=== PATIENT | male | born 1980 | race Caucasian/White ===

== ENCOUNTER 2018-01-19 06:36 | Emergency (ER) | payer SELFPAY ==
--- NOTE | 2018-01-19 07:25 | ER ---
Nurse's Notes [facility] Name: Tomas Jordan Age: 37 yrs Sex: Male : 1980 Arrival Date: 01/19/2018 Time: 06:47 Bed 18 Private MD: Diagnosis: L5 Sciatica right. Presentation: 01/19 07:07 Presenting complaint: Patient states: has right hip pain radiating down right leg, also iw has numbness in leg. Transition of care: patient was not received from another setting of care. Onset of symptoms was January 19, 2018. Care prior to arrival: None. 07:07 Method Of Arrival: Ambulatory iw 07:07 Acuity: DAREK 4 iw 07:22 Initial Sepsis Screen: Does the patient meet any 2 criteria? No. Patient's initial ph sepsis screen is negative. Does the patient have a suspected source of infection? No. Patient initial sepsis screen negative. Triage Assessment: 07:19 General: Appears in no apparent distress. uncomfortable, Behavior is calm, cooperative, ph appropriate for age, Denies fever, feeling ill. Pain: Complains of pain in low back area Pain radiates to right leg Pain currently is 8 out of 10 on a pain scale. Quality of pain is described as sharp, shooting. Neuro: Level of Consciousness is awake, alert, obeys commands, Oriented to person, place, time, situation. Cardiovascular: Capillary refill < 3 seconds Patient's skin is warm and dry. Respiratory: Airway is patent Respiratory effort is even, unlabored, Respiratory pattern is regular, symmetrical. GI:. Derm: Skin is intact, is healthy with good turgor, Skin is pink, warm \T\ dry. Musculoskeletal: Circulation, motion, and sensation intact. Range of motion: intact in all extremities, Swelling absent. Historical: - Allergies: 07:17 tramadol; ph - Home Meds: 07:19 None [Active]; ph - PMHx: 07:19 Gout; ph - PSHx: 07:19 hydrocele; ph - Immunization history:: Adult Immunizations not up to date. - Social history:: Smoking status: Patient uses tobacco products, smokes one pack cigarettes per day. Screenin:19 Abuse screen: Denies threats or abuse. Denies injuries from another. Nutritional ph screening: No deficits noted. Tuberculosis screening: No symptoms or risk factors identified. Fall Risk None identified. Assessment: 07:30 General: SEE TRIAGE ASSESSMENT. ph 08:15 Reassessment: Patient appears in no apparent distress at this time. Patient is alert, ph oriented x 3, equal unlabored respirations, skin warm/dry/pink. Pt discharged home. Vital Signs: 07:17 BP 152 / 94; Pulse 82; Resp 18; Temp 97.8; Pulse Ox 99% on R/A; Weight 98.88 kg; Pain ph 8/10; ED Course: 06:47 Patient arrived in ED. al2 07:02 Mac Bernal MD is Attending Physician. ps1 07:07 Triage completed. iw 07:15 Magy Rowe RN is Primary Nurse. ph 07:19 Arm band placed on. ph 07:21 Patient has correct armband on for positive identification. Bed in low position. Call ph light in reach. 07:22 No provider procedures requiring assistance completed. Patient did not have IV access ph during this emergency room visit. Administered Medications: 07:50 Drug: TORadol 30 mg Route: IM; Site: right deltoid; ph 08:14 Follow up: Response: No adverse reaction ph 07:50 Drug: Decadron - Dexamethasone 10 mg {Note: administered orally per ERP order.} Route: ph IVP; Site: Other; 08:14 Follow up: Response: No adverse reaction ph Outcome: 07:24 Discharge ordered by . ps1 08:15 Discharged to home ambulatory. ph 08:15 Condition: good 08:15 Discharge instructions given to patient, Instructed on discharge instructions, follow up and referral plans. medication usage, Demonstrated understanding of instructions, follow-up care, medications, Prescriptions given X 3. 08:15 Patient left the ED. ph Signatures: Rena Quach, RN RN iw Magy Rowe, RN RN ph Mac Bernal MD MD ps1 Love, Angelica al2
--- NOTE | 2018-01-19 07:25 | EDPHYS ---
Physician Documentation [facility] Name: Tomas Jordan Age: 37 yrs Sex: Male : 1980 Arrival Date: 01/19/2018 Time: 06:47 Bed 18 Private MD: ED Physician Mac Bernal HPI: 01/19 07:18 This 37 yrs old Male presents to ER via Ambulatory with complaints of Back ps1 Pain. 07:18 The patient presents with pain that is acute, with no known mechanism of injury. The ps1 symptoms are located in the low back. Onset: The symptoms/episode began/occurred yesterday. Location: right leg to toe. Associated signs and symptoms: Pertinent positives: tingling, Pertinent negatives: fever, urinary retention, weakness. 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 Historical: - Allergies: 07:17 tramadol; ph - Home Meds: 07:19 None [Active]; ph - PMHx: 07:19 Gout; ph - PSHx: 07:19 hydrocele; ph - Immunization history:: Adult Immunizations not up to date. - Social history:: Smoking status: Patient uses tobacco products, smokes one pack cigarettes per day. ROS: 07:18 Constitutional: Negative for fever, chills, and weight loss, Cardiovascular: Negative ps1 for chest pain, palpitations, and edema, Respiratory: Negative for shortness of breath, cough, wheezing, and pleuritic chest pain, Abdomen/GI: Negative for abdominal pain, nausea, vomiting, diarrhea, and constipation. 07:18 Skin: Negative for injury, rash, and discoloration, Neuro: Negative for headache, weakness, numbness, tingling, and seizure, Psych: Negative for depression, anxiety, suicide ideation, homicidal ideation, and hallucinations. 07:18 Back: Positive for pain at rest, radiated pain, Negative for injury or acute deformity. Exam: 07:18 Constitutional: This is a well developed, well nourished patient who is awake, alert, ps1 and in no acute distress. Head/Face: Normocephalic, atraumatic. Eyes: Pupils equal round and reactive to light, extra-ocular motions intact. Lids and lashes normal. Conjunctiva and sclera are non-icteric and not injected. Chest/axilla: Normal chest wall appearance and motion. Nontender with no deformity. No lesions are appreciated. Cardiovascular: Regular rate and rhythm. No gallops, murmurs, or rubs. Normal PMI, no JVD. No pulse deficits. Respiratory: Lungs have equal breath sounds bilaterally, clear to auscultation and percussion. No rales, rhonchi or wheezes noted. No increased work of breathing, no retractions or nasal flaring. Abdomen/GI: Soft, non-tender, with normal bowel sounds. No distension or tympany. No guarding or rebound. No evidence of tenderness throughout. Skin: Warm, dry with normal turgor. Normal color with no rashes, no lesions, and no evidence of cellulitis. Neuro: Awake and alert, GCS 15, oriented to person, place, time, and situation. Cranial nerves II-XII grossly intact. Sensory grossly intact. 07:18 MS/ Extremity: Pulses equal, no cyanosis. Neurovascular intact. Full, normal range of motion. 07:18 Back: pain, that is moderate, ROM is painful, muscle spasm, is appreciated in the right low back. Vital Signs: 07:17 BP 152 / 94; Pulse 82; Resp 18; Temp 97.8; Pulse Ox 99% on R/A; Weight 98.88 kg; Pain ph 8/10; MDM: 07:18 Data reviewed: vital signs, nurses notes. ps1 07:24 Patient medically screened. ps1 Administered Medications: 07:50 Drug: TORadol 30 mg Route: IM; Site: right deltoid; ph 08:14 Follow up: Response: No adverse reaction ph 07:50 Drug: Decadron - Dexamethasone 10 mg {Note: administered orally per ERP order.} Route: ph IVP; Site: Other; 08:14 Follow up: Response: No adverse reaction ph Disposition: 18 07:24 Discharged to Home. Impression: L5 Sciatica right. . - Condition is Stable. - Discharge Instructions: Sciatica. - Prescriptions for Anaprox DS 550 mg Oral Tablet - take 1 tablet by ORAL route every 12 hours As needed; 20 tablet. Robaxin 500 mg Oral Tablet - take 2 tablet by ORAL route every 6 hours As needed; 40 tablet. Medrol (Ivan) 4 mg Oral Tablets, Dose Pack - take 1 tablet by ORAL route as directed - follow package instructions; 1 packet. - Work release form, Medication Reconciliation Form, Thank You Letter, Antibiotic Education, Prescription Opioid Use form. - Follow up: Emergency Department; When: As needed; Reason: Fever > 102 F, Worsening of condition. Follow up: Private Physician; When: As needed; Reason: follow up and consideration of further diagnostic workup. . - Problem is new. - Symptoms are unchanged. Signatures: Magy Rowe RN RN Mac Kramer MD MD ps1
[2018-01-19] MEDS ORDERED: DEXAMETHASONE 10 MG/ML VIAL ONE (07:42)
[2018-01-19] MEDS ORDERED: KETOROLAC 30 MG/ML INJ ONE (07:42)
== END 2018-01-19 08:15 | disposition home or self-care (01) ==
LOC: ER 06:36
DX: M54.31 Sciatica, right side (principal); F17.210 Nicotine dependence, cigarettes, uncomplicated; Z88.6 Allergy status to analgesic agent
CPT/HCPCS: 96372; 96374; 99283; J1100

== ENCOUNTER 2018-01-22 19:32 | Emergency (ER) | payer SELFPAY ==
--- NOTE | 2018-01-22 21:36 | EDPHYS ---
Physician Documentation [facility] Name: Tomas Jordan Age: 37 yrs Sex: Male : 1980 Arrival Date: 01/22/2018 Time: 19:36 Bed 12 Private MD: ED Physician Ed Hilliard HPI: 01/22 22:00 This 37 yrs old Male presents to ER via Ambulatory with complaints of Skin pm1 infection. 22:00 The patient presents with an abscess of the shaft of penis. Description: raised. Onset: pm1 The symptoms/episode began/occurred 1 month(s) ago. Possible cause(s): unknown. Associated signs and symptoms: Pertinent negatives: discharge, drainage, fever. Modifying factors: the symptoms are alleviated by nothing, the symptoms are aggravated by nothing. Severity of symptoms: in the emergency department the symptoms have improved. The patient has not experienced similar symptoms in the past. The patient has not recently seen a physician. No intercourse for 1 year. No history of STD. History of MRSA infection to left arm 3 years ago. Historical: - Allergies: 20:11 tramadol; aj - Home Meds: 20:11 None [Active]; aj - PMHx: 20:11 Gout; aj - PSHx: 20:11 hydrocele; aj - Immunization history:: Last tetanus immunization: up to date. - Social history:: Smoking status: Patient uses tobacco products, smokes one pack cigarettes per day. ROS: 22:00 Constitutional: Negative for fever, chills, and weight loss, Eyes: Negative for injury, pm1 pain, redness, and discharge, ENT: Negative for injury, pain, and discharge, Neck: Negative for injury, pain, and swelling, Cardiovascular: Negative for chest pain, palpitations, and edema, Respiratory: Negative for shortness of breath, cough, wheezing, and pleuritic chest pain, Abdomen/GI: Negative for abdominal pain, nausea, vomiting, diarrhea, and constipation, Back: Negative for injury and pain, : Negative for injury, bleeding, discharge, and swelling, MS/Extremity: Negative for injury and deformity. 22:00 Skin: Positive for abscess, of the shaft of penis. Exam: 22:00 Constitutional: This is a well developed, well nourished patient who is awake, alert, pm1 and in no acute distress. Head/Face: Normocephalic, atraumatic. Chest/axilla: Normal chest wall appearance and motion. Nontender with no deformity. No lesions are appreciated. Cardiovascular: Regular rate and rhythm with a normal S1 and S2. No gallops, murmurs, or rubs. Normal PMI, no JVD. No pulse deficits. Respiratory: Lungs have equal breath sounds bilaterally, clear to auscultation and percussion. No rales, rhonchi or wheezes noted. No increased work of breathing, no retractions or nasal flaring. Abdomen/GI: Soft, non-tender, with normal bowel sounds. No distension or tympany. No guarding or rebound. No evidence of tenderness throughout. Back: No spinal tenderness. No costovertebral tenderness. Full range of motion. 22:00 Skin: Warm, dry with normal turgor. Normal color with no rashes, no lesions, and no evidence of cellulitis. MS/ Extremity: Pulses equal, no cyanosis. Neurovascular intact. Full, normal range of motion. 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 Vital Signs: 20:11 BP 154 / 89; Pulse 97; Resp 17; Temp 98.4; Pulse Ox 97% on R/A; Weight 98.88 kg; Height aj 5 ft. 11 in. (180.34 cm); Pain 0/10; 20:11 Body Mass Index 30.40 (98.88 kg, 180.34 cm) aj MDM: 20:46 Patient medically screened. [facility] 21:33 Data reviewed: vital signs. Data interpreted: Pulse oximetry: on room air is 97 %. pm1 Interpretation: normal. Counseling: I had a detailed discussion with the patient and/or guardian regarding: the historical points, exam findings, and any diagnostic results supporting the discharge/admit diagnosis, the need for outpatient follow up, to return to the emergency department if symptoms worsen or persist or if there are any questions or concerns that arise at home. Administered Medications: No medications were administered Disposition: 01/22/18 21:35 Discharged to Home. Impression: Cutaneous abscess of groin. - Condition is Stable. - Discharge Instructions: Abscess. - Prescriptions for Bactrim DS 800- 160 mg Oral Tablet - take 1 tablet by ORAL route every 12 hours for 10 days; 20 tablet. - Medication Reconciliation Form, Thank You Letter, Antibiotic Education form. - Follow up: Emergency Department; When: As needed; Reason: Worsening of condition. Follow up: Private Physician; When: 2 - 3 days; Reason: Recheck today's complaints, Continuance of care, Re-evaluation by your physician. - Problem is new. - Symptoms have improved. Addendum: 01/24/2018 07:25 Co-signature as Attending Physician, Ed Hilliard MD I agree with the assessment and c wilde plan of care. Signatures: Iman Bowman, RN Ed Cook MD MD cha Ortiz, Alex RN Nato Amaya, RESERVATION CLERK RESERVATION CLERK pm1
--- NOTE | 2018-01-22 21:36 | ER ---
Nurse's Notes [facility] Name: Tomas Jordan Age: 37 yrs Sex: Male : 1980 Arrival Date: 01/22/2018 Time: 19:36 Bed 12 Private MD: Diagnosis: Cutaneous abscess of groin Presentation: 01/22 20:10 Presenting complaint: Patient states: Ulcer to shaft of penis for 1 month. Transition aj of care: patient was not received from another setting of care. Onset of symptoms was December 22, 2017. Initial Sepsis Screen: Does the patient meet any 2 criteria? No. Patient's initial sepsis screen is negative. Does the patient have a suspected source of infection? No. Patient's initial sepsis screen is negative. Care prior to arrival: None. 20:10 Method Of Arrival: Ambulatory aj 20:10 Acuity: DAREK 4 aj Triage Assessment: 20:11 General: Appears in no apparent distress. comfortable, Behavior is calm, cooperative, aj appropriate for age. Pain: Denies pain. Neuro: Level of Consciousness is awake, alert, obeys commands, Oriented to person, place, time, situation. Respiratory: Airway is patent Respiratory effort is even, unlabored, Respiratory pattern is regular, symmetrical. : Reports sore to right shaft or penis. Derm: Skin is intact, is healthy with good turgor, Skin is pink, warm \T\ dry. normal. Historical: - Allergies: 20:11 tramadol; aj - Home Meds: 20:11 None [Active]; aj - PMHx: 20:11 Gout; aj - PSHx: 20:11 hydrocele; aj - Immunization history:: Last tetanus immunization: up to date. - Social history:: Smoking status: Patient uses tobacco products, smokes one pack cigarettes per day. Screenin:06 Abuse screen: Denies threats or abuse. Denies injuries from another. Nutritional ao screening: No deficits noted. Tuberculosis screening: No symptoms or risk factors identified. Fall Risk None identified. Assessment: 21:00 General: Appears in no apparent distress. comfortable, Behavior is calm, cooperative, ao appropriate for age. Pain: Complains of pain in pelvis. Neuro: Level of Consciousness is awake, alert, obeys commands, Oriented to person, place, time, situation, Appropriate for age Moves all extremities. Full function Speech is normal, Facial symmetry appears normal. Cardiovascular: Heart tones S1 S2 Capillary refill < 3 seconds Patient's skin is warm and dry. Respiratory: Airway is patent Respiratory effort is even, unlabored, Respiratory pattern is regular, symmetrical. GI: Abdomen is non-distended. : No signs and/or symptoms were reported regarding the genitourinary system. Boil in the shaft of the penes. EENT: No signs and/or symptoms were reported regarding the EENT system. Derm: Skin is intact, Skin temperature is warm. Musculoskeletal: Range of motion:. 22:06 Reassessment: DC given to patient. Patient understand the POC and to follow up with ao PCP. Patient understand to complete antibiotics. Vital Signs: 20:11 BP 154 / 89; Pulse 97; Resp 17; Temp 98.4; Pulse Ox 97% on R/A; Weight 98.88 kg; Height aj 5 ft. 11 in. (180.34 cm); Pain 0/10; 20:11 Body Mass Index 30.40 (98.88 kg, 180.34 cm) aj ED Course: 19:36 Patient arrived in ED. es 20:11 Triage completed. aj 20:11 Arm band placed on left wrist. Patient placed in waiting room, Patient notified of wait aj time. 20:30 Rena Quach, YE is Primary Nurse. iw 20:40 Nato Healy NP is PHCP. pm1 20:40 Ed Hilliard MD is Attending Physician. pm1 22:06 No provider procedures requiring assistance completed. Patient did not have IV access ao during this emergency room visit. 22:07 Patient has correct armband on for positive identification. ao Administered Medications: No medications were administered Outcome: 21:35 Discharge ordered by . pm1 22:07 Discharged to home ambulatory. ao 22:07 Condition: stable 22:07 Discharge instructions given to patient, Instructed on discharge instructions, follow up and referral plans. Demonstrated understanding of instructions, follow-up care, medications, wound care, Prescriptions given X 1. 22:07 Patient left the ED. ao Signatures: Iman Bowman RN Kate Beavers Rena Quach RN RN iw Ortiz, Alex, RN RN ao Marinas, Patrick, NP CHART PICKER pm1
== END 2018-01-22 22:07 | disposition home or self-care (01) ==
LOC: ER 19:32
DX: L02.214 Cutaneous abscess of groin (principal); Z88.6 Allergy status to analgesic agent
CPT/HCPCS: 99282

== ENCOUNTER 2018-02-15 18:35 | Emergency (ER) | payer SELFPAY ==
[2018-02-15] MEDS ORDERED: HYDROCODONE/APAP 10/325 TAB ONE (20:29)
[2018-02-15] MEDS ORDERED: KETOROLAC 30 MG/ML INJ ONE (20:30)
--- NOTE | 2018-02-15 20:59 | EDPHYS ---
Physician Documentation [facility] Name: Tomas Jordan Age: 38 yrs Sex: Male : 1980 Arrival Date: 02/15/2018 Time: 18:37 Bed 28 Private MD: ED Physician Luis Tejada HPI: 02/15 20:45 This 38 yrs old Male presents to ER via Ambulatory with complaints of Hand rn pain. 20:45 The patient or guardian reports pain. The complaints affect the MCP of left index rn finger. Onset: The symptoms/episode began/occurred at an unknown time. Severity of symptoms: At their worst the symptoms were mild, in the emergency department the symptoms are unchanged. The patient has experienced similar episodes in the past. Reports hx of gout since in 20s, is right handed, reports left hand pain, located in 2nd MTP, + mild swelling, no trauma, no fever, no IV drug use. Similar episodes in past, no finger proper pain. 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 Historical: - Allergies: 19:00 tramadol (Hives); hb - Home Meds: 19:00 None [Active]; hb - PMHx: 19:00 Gout; hb - PSHx: 19:00 hydrocele; hb - Immunization history:: Adult Immunizations up to date. - Social history:: Smoking status: Patient uses tobacco products, smokes one pack cigarettes per day. - Family history:: not pertinent. - Hospitalizations: : No recent hospitalization is reported. ROS: 20:45 Constitutional: Negative for fever, chills, and weight loss, MS/Extremity: Negative for rn injury and deformity. Exam: 20:45 Constitutional: This is a well developed, well nourished patient who is awake, alert, rn and in no acute distress. MS/ Extremity: Pulses equal, no cyanosis. Neurovascular intact. Full, normal range of motion. Equal circumference. + left 2nd MTP joint with mild swelling, + FROM, no deformity, no skin changes. Vital Signs: 18:59 BP 126 / 73; Pulse 101; Resp 16; Temp 98.6; Pulse Ox 97% on R/A; Weight 98.43 kg; hb Height 5 ft. 11 in. (180.34 cm); Pain 5/10; 21:09 BP 130 / 72; Pulse 93; Resp 16; Pulse Ox 98% on R/A; aj 18:59 Body Mass Index 30.27 (98.43 kg, 180.34 cm) MDM: 20:14 Patient medically screened. rn 20:57 Differential diagnosis: gout, arthritis. Data reviewed: vital signs, nurses notes, and rn as a result, I will discharge patient. Counseling: I had a detailed discussion with the patient and/or guardian regarding: the historical points, exam findings, and any diagnostic results supporting the discharge/admit diagnosis, the need for outpatient follow up, to return to the emergency department if symptoms worsen or persist or if there are any questions or concerns that arise at home. Response to treatment: the patient's symptoms have mildly improved after treatment, and as a result, I will discharge patient. Special discussion: I discussed with the patient/guardian in detail that at this point there is no indication for admission to the hospital. It is understood, however, that if the symptoms persist or worsen the patient needs to return immediately for re-evaluation. Administered Medications: 20:33 Drug: TORadol 30 mg Route: IM; Site: left gluteus; aj 21:10 Follow up: Response: Pain is decreased aj 20:33 Drug: [place] 10 mg-325 mg 1 tabs Route: PO; aj 21:10 Follow up: Response: Pain is decreased Disposition: 02/15/18 20:57 Discharged to Home. Impression: Gout. - Condition is Stable. - Discharge Instructions: Gout. - Prescriptions for Tylenol- Codeine #3 300-30 mg Oral Tablet - take 1 tablet by ORAL route every 6 hours As needed; 15 tablet. Diclofenac Sodium 75 mg Oral Tablet Sustained Release - take 1 tablet by ORAL route 2 times per day; 30 tablet. - Medication Reconciliation Form, Thank You Letter, Antibiotic Education, Prescription Opioid Use form. - Follow up: Private Physician; When: As needed; Reason: Recheck today's complaints, Re-evaluation by your physician. - Problem is an acute exacerbation. - Symptoms have improved. Signatures: Iman Bowman RN RN aj Nieto, Roman, MD MD rn Baxter, Heather, RN RN Corrections: (The following items were deleted from the chart) 20:47 20:45 Reports hx of gout since in 20s, is right handed, reports left hand pain, located rn in 1st MTP, + mild swelling, no trauma, no fever, no IV drug use. Similar episodes in past, no finger proper pain. 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 rn 21:11 20:57 02/15/2018 20:57 Discharged to Home. Impression: Gout. Condition is Stable. Forms aj are Medication Reconciliation Form, Thank You Letter, Antibiotic Education, Prescription Opioid Use. Follow up: Private Physician; When: As needed; Reason: Recheck today's complaints, Re-evaluation by your physician. Problem is an acute exacerbation. Symptoms have improved. rn
--- NOTE | 2018-02-15 20:59 | ER ---
Nurse's Notes [facility] Name: Tomas Jordan Age: 38 yrs Sex: Male : 1980 Arrival Date: 02/15/2018 Time: 18:37 Bed 28 Private MD: Diagnosis: Gout Presentation: 02/15 18:59 Presenting complaint: Patient states: Left index finger pain and swelling since this hb morning. Hx gout. Transition of care: patient was not received from another setting of care. Onset of symptoms was February 15, 2018. Initial Sepsis Screen: Does the patient meet any 2 criteria? No. Patient's initial sepsis screen is negative. Does the patient have a suspected source of infection? No. Patient's initial sepsis screen is negative. Care prior to arrival: None. 18:59 Method Of Arrival: Ambulatory hb 18:59 Acuity: DAREK 4 hb Historical: - Allergies: 19:00 tramadol (Hives); hb - Home Meds: 19:00 None [Active]; hb - PMHx: 19:00 Gout; hb - PSHx: 19:00 hydrocele; hb - Immunization history:: Adult Immunizations up to date. - Social history:: Smoking status: Patient uses tobacco products, smokes one pack cigarettes per day. - Family history:: not pertinent. - Hospitalizations: : No recent hospitalization is reported. Screenin:55 Abuse screen: Denies threats or abuse. Denies injuries from another. Nutritional aj screening: No deficits noted. Tuberculosis screening: No symptoms or risk factors identified. Fall Risk None identified. Assessment: 19:51 General: Appears in no apparent distress. comfortable, Behavior is calm, cooperative, aj appropriate for age. Pain: Complains of pain in left hand. Neuro: Level of Consciousness is awake, alert, obeys commands, Oriented to person, place, time, situation, Appropriate for age. Respiratory: Airway is patent Trachea midline Respiratory effort is even, unlabored, Respiratory pattern is regular, symmetrical. Derm: Skin is intact, is healthy with good turgor, Skin is pink, warm \T\ dry. normal. Musculoskeletal: Circulation, motion, and sensation intact. Swelling present in dorsal aspect of proximal phalanx of left index finger. Vital Signs: 18:59 BP 126 / 73; Pulse 101; Resp 16; Temp 98.6; Pulse Ox 97% on R/A; Weight 98.43 kg; hb Height 5 ft. 11 in. (180.34 cm); Pain 5/10; 21:09 BP 130 / 72; Pulse 93; Resp 16; Pulse Ox 98% on R/A; aj 18:59 Body Mass Index 30.27 (98.43 kg, 180.34 cm) hb ED Course: 18:37 Patient arrived in ED. al2 18:59 Triage completed. hb 19:00 Arm band placed on left wrist. hb 19:45 Iman Bowman, RN is Primary Nurse. aj 19:55 Patient has correct armband on for positive identification. aj 19:55 No provider procedures requiring assistance completed. aj 20:14 Luis Tejada MD is Attending Physician. rn 21:09 Patient did not have IV access during this emergency room visit. aj Administered Medications: 20:33 Drug: TORadol 30 mg Route: IM; Site: left gluteus; aj 21:10 Follow up: Response: Pain is decreased aj 20:33 Drug: Bernie 10 mg-325 mg 1 tabs Route: PO; aj 21:10 Follow up: Response: Pain is decreased aj Outcome: 20:57 Discharge ordered by . rn 21:09 Discharged to home ambulatory. aj 21: Condition: good 21:09 Discharge instructions given to patient, Instructed on discharge instructions, follow up and referral plans. medication usage, Demonstrated understanding of instructions, follow-up care, medications, Prescriptions given X 2. 21:11 Patient left the ED. aj Signatures: Iman Bowman, RN Luis Hebert MD MD rn Baxter, Heather, RN RN hb Love, Angelica al2 Corrections: (The following items were deleted from the chart) 18:59 18:58 Presenting complaint: hb hb 19:01 18:59 98.43 kg; Height 5 ft. 11 in.; BMI: 30.2; Pain 5/10; hb hb
== END 2018-02-15 21:11 | disposition home or self-care (01) ==
LOC: ER 18:35
DX: M10.9 Gout, unspecified (principal); F17.210 Nicotine dependence, cigarettes, uncomplicated; Z88.6 Allergy status to analgesic agent
CPT/HCPCS: 96372; 99283

== ENCOUNTER 2018-02-22 20:13 | Emergency (ER) | payer SELFPAY ==
[2018-02-22] MEDS ORDERED: KETOROLAC 30 MG/ML INJ ONE (21:59)
[2018-02-22] MEDS ORDERED: HYDROCODONE/APAP 10/325 TAB ONE (21:59)
[2018-02-22] MEDS ORDERED: METHYLPREDNISOLONE 125 MG INJ ONE (21:59)
--- NOTE | 2018-02-22 23:13 | EDPHYS ---
Physician Documentation [facility] Name: Tomas Jordan Age: 38 yrs Sex: Male : 1980 Arrival Date: 02/22/2018 Time: 20:17 Bed 26 Private MD: ED Physician Jerry Panda HPI: 02/22 23:00 This 38 yrs old Male presents to ER via Ambulatory with complaints of Gout in pm1 Hands. 23:00 The patient or guardian reports pain. The complaints affect the MCP of left thumb. pm1 Context: The problem was sustained at home, resulted from gout and over use at work. Onset: The symptoms/episode began/occurred 3 day(s) ago. Modifying factors: The symptoms are alleviated by nothing, the symptoms are aggravated by movement. Associated signs and symptoms: Pertinent negatives: cyanosis distally, decreased sensation distally, fever. Severity of symptoms: in the emergency department the symptoms are actually worse. The patient has experienced similar episodes in the past, multiple times. The patient has not recently seen a physician. Historical: - Allergies: 20:33 tramadol (Hives); lk1 - PMHx: 20:33 Gout; lk1 - PSHx: 20:33 hydrocele; lk1 - Immunization history:: Adult Immunizations up to date. - Social history:: Smoking status: Patient uses tobacco products, smokes one pack cigarettes per day. ROS: 23:00 Constitutional: Negative for fever, chills, and weight loss, Eyes: Negative for injury, pm1 pain, redness, and discharge, ENT: Negative for injury, pain, and discharge, Neck: Negative for injury, pain, and swelling, Cardiovascular: Negative for chest pain, palpitations, and edema, Respiratory: Negative for shortness of breath, cough, wheezing, and pleuritic chest pain, Abdomen/GI: Negative for abdominal pain, nausea, vomiting, diarrhea, and constipation, Back: Negative for injury and pain. 23:00 Skin: Negative for injury, rash, and discoloration. 23:00 MS/extremity: Positive for pain, swelling, of the PIP of left thumb. Exam: 23:00 Constitutional: This is a well developed, well nourished patient who is awake, alert, pm1 and in no acute distress. Head/Face: Normocephalic, atraumatic. Chest/axilla: Normal chest wall appearance and motion. Nontender with no deformity. No lesions are appreciated. Cardiovascular: Regular rate and rhythm with a normal S1 and S2. No gallops, murmurs, or rubs. Normal PMI, no JVD. No pulse deficits. Respiratory: Lungs have equal breath sounds bilaterally, clear to auscultation and percussion. No rales, rhonchi or wheezes noted. No increased work of breathing, no retractions or nasal flaring. Abdomen/GI: Soft, non-tender, with normal bowel sounds. No distension or tympany. No guarding or rebound. No evidence of tenderness throughout. Back: No spinal tenderness. No costovertebral tenderness. Full range of motion. Skin: Warm, dry with normal turgor. Normal color with no rashes, no lesions, and no evidence of cellulitis. 23:00 Musculoskeletal/extremity: Extremities: grossly normal except: noted in the PIP of left thumb: swelling, tenderness, ROM: intact in all extremities. Vital Signs: 20:33 BP 117 / 79; Pulse 96; Resp 16; Temp 98.3(TE); Pulse Ox 97% on R/A; Weight 97.52 kg lk1 (R); Height 5 ft. 11 in. (180.34 cm) (R); Pain 6/10; 20:48 BP 135 / 81; Pulse 93; Resp 16; Pulse Ox 96% ; tl3 21:20 BP 126 / 81; Pulse 98; Resp 16; Pulse Ox 98% ; tl3 22:06 BP 116 / 69; Pulse 84; Resp 16; Pulse Ox 99% ; tl3 23:03 BP 116 / 89; Pulse 82; Resp 18; Pulse Ox 99% ; tl3 20:33 Body Mass Index 29.99 (97.52 kg, 180.34 cm) lk1 MDM: 21:06 Patient medically screened. pm1 23:10 Data reviewed: vital signs. Data interpreted: Pulse oximetry: on room air is 99 %. pm1 Interpretation: normal. Counseling: I had a detailed discussion with the patient and/or guardian regarding: the historical points, exam findings, and any diagnostic results supporting the discharge/admit diagnosis, the need for outpatient follow up, to return to the emergency department if symptoms worsen or persist or if there are any questions or concerns that arise at home. Administered Medications: 22:05 Drug: SOLU-Medrol 125 mg Route: IM; Site: right gluteus; tl3 23:35 Follow up: Response: No adverse reaction tl3 22:05 Drug: TORadol 60 mg Route: IM; Site: left gluteus; tl3 23:35 Follow up: Response: No adverse reaction; Pain is decreased tl3 22:05 Drug: [place]phur 10 mg-325 mg 1 tabs Route: PO; tl3 23:34 Follow up: Response: No adverse reaction; Pain is decreased tl3 Disposition: 02/23 01:12 Co-signature as Attending Physician, Jerry Panda MD I agree with the assessment and tw4 plan of care. Disposition: 02/22/18 23:12 Discharged to Home. Impression: Gout. - Condition is Stable. - Discharge Instructions: Gout. - Prescriptions for indomethacin 25 mg Oral capsule - take 1 capsule by ORAL route 3 times per day with food; 30 capsule. Medrol (Ivan) 4 mg Oral Tablets, Dose Pack - take 1 tablet by ORAL route as directed - follow package instructions; 1 packet. - Medication Reconciliation Form, Thank You Letter form. - Follow up: Emergency Department; When: As needed; Reason: Worsening of condition. Follow up: Private Physician; When: 2 - 3 days; Reason: Recheck today's complaints, Continuance of care, Re-evaluation by your physician. - Problem is new. - Symptoms have improved. Signatures: Milvia Kennedy, RN RN lk1 Nato Healy, MEDICAL SURGERY NURSE MEDICAL SURGERY NURSE pm1 Jerry Panda MD MD tw4 Emily Shi, RN RN tl3 Corrections: (The following items were deleted from the chart) 02/22 23:34 23:12 02/22/2018 23:12 Discharged to Home. Impression: Gout. Condition is Stable. Forms tl3 are Medication Reconciliation Form, Thank You Letter, Antibiotic Education, Prescription Opioid Use. Follow up: Emergency Department; When: As needed; Reason: Worsening of condition. Follow up: Private Physician; When: 2 - 3 days; Reason: Recheck today's complaints, Continuance of care, Re-evaluation by your physician. Problem is new. Symptoms have improved. pm1
--- NOTE | 2018-02-22 23:13 | ER ---
Nurse's Notes [facility] Name: Tomas Jordan Age: 38 yrs Sex: Male : 1980 Arrival Date: 02/22/2018 Time: 20:17 Bed 26 Private MD: Diagnosis: Gout Presentation: 02/22 20:31 Presenting complaint: Patient states: "I have gout in my hand, I was here last week for lk1 it and it's just gotten worse. I have been taking the meds like it says. I can't stop working, and I think that's why it won't get better.". Transition of care: patient was not received from another setting of care. Onset of symptoms is unknown. Risk Assessment: Do you want to hurt yourself or someone else? Patient reports no desire to harm self or others. Initial Sepsis Screen: Does the patient meet any 2 criteria? No. Patient's initial sepsis screen is negative. Does the patient have a suspected source of infection? No. Patient's initial sepsis screen is negative. Care prior to arrival: None. 20:31 Method Of Arrival: Ambulatory lk1 20:31 Acuity: DAREK 4 lk1 Triage Assessment: 20:31 General: Appears uncomfortable, well groomed, well developed, well nourished, Behavior tl3 is calm, cooperative, appropriate for age. Pain: Complains of pain in right index fingernail and dorsal aspect of proximal phalanx of right index finger and dorsal aspect of middle phalanx of right index finger and dorsal aspect of distal phalanx of right index finger and right middle lobe and right upper lobe. EENT: No deficits noted. No signs and/or symptoms were reported regarding the EENT system. Neuro: No deficits noted. Level of Consciousness is awake, alert, obeys commands, Oriented to person, place, time, situation, Appropriate for age. Cardiovascular: No deficits noted. Heart tones S1 S2 present. Respiratory: No deficits noted. Airway is patent Trachea midline Respiratory effort is even, unlabored, Respiratory pattern is regular, symmetrical. GI: No signs and/or symptoms were reported involving the gastrointestinal system. : No signs and/or symptoms were reported regarding the genitourinary system. Derm: No signs and/or symptoms reported regarding the dermatologic system. Musculoskeletal: Reports pain in dorsal aspect of proximal phalanx of right index finger and dorsal aspect of middle phalanx of right index finger and dorsal aspect of distal phalanx of right index finger and right middle lobe and right upper lobe and right hand. 23:36 General: Appears. tl3 Historical: - Allergies: 20:33 tramadol (Hives); lk1 - PMHx: 20:33 Gout; lk1 - PSHx: 20:33 hydrocele; lk1 - Immunization history:: Adult Immunizations up to date. - Social history:: Smoking status: Patient uses tobacco products, smokes one pack cigarettes per day. Screenin:48 Abuse screen: Denies threats or abuse. Nutritional screening: No deficits noted. tl3 Tuberculosis screening: No symptoms or risk factors identified. Fall Risk None identified. Assessment: 20:48 General: Appears in no apparent distress. uncomfortable, well groomed, well developed, tl3 well nourished, Behavior is calm, cooperative, appropriate for age. Pain: Complains of pain in palmar aspect of distal phalanx of right index finger, palmar aspect of middle phalanx of right index finger and palmar aspect of proxima; phalanx of right index finger. Neuro: Level of Consciousness is awake, alert, obeys commands, Oriented to person, place, time, situation, Appropriate for age. Cardiovascular: Heart tones S1 S2 present Patient's skin is warm and dry. Respiratory: Airway is patent Trachea midline Respiratory effort is even, unlabored, Respiratory pattern is regular, symmetrical, Breath sounds with wheezes in right upper lobe and right middle lobe. GI: No signs and/or symptoms were reported involving the gastrointestinal system. : No signs and/or symptoms were reported regarding the genitourinary system. EENT: No signs and/or symptoms were reported regarding the EENT system. Derm: No signs and/or symptoms reported regarding the dermatologic system. Musculoskeletal: Swelling present in dorsal aspect of distal phalanx of right index finger, dorsal aspect of middle phalanx of right index finger, dorsal aspect of proximal phalanx of right index finger, palmar aspect of distal phalanx of right index finger, palmar aspect of middle phalanx of right index finger, palmar aspect of proxima; phalanx of right index finger and right index fingernail pt with hx of gout, 2nd flare up in 2 weeks. 21:20 Reassessment: danitza at bedside for pt assessment. tl3 21:21 Reassessment: Patient appears in no apparent distress at this time. No changes from tl3 previously documented assessment. Patient and/or family updated on plan of care and expected duration. Pain level reassessed. Patient is alert, oriented x 3, equal unlabored respirations, skin warm/dry/pink. 22:06 Reassessment: Patient appears in no apparent distress at this time. No changes from tl3 previously documented assessment. Patient and/or family updated on plan of care and expected duration. Pain level reassessed. Patient is alert, oriented x 3, equal unlabored respirations, skin warm/dry/pink. 23:03 Reassessment: Patient appears in no apparent distress at this time. No changes from tl3 previously documented assessment. Patient and/or family updated on plan of care and expected duration. Pain level reassessed. Patient is alert, oriented x 3, equal unlabored respirations, skin warm/dry/pink. pt states that pain is better. Vital Signs: 20:33 BP 117 / 79; Pulse 96; Resp 16; Temp 98.3(TE); Pulse Ox 97% on R/A; Weight 97.52 kg lk1 (R); Height 5 ft. 11 in. (180.34 cm) (R); Pain 6/10; 20:48 BP 135 / 81; Pulse 93; Resp 16; Pulse Ox 96% ; tl3 21:20 BP 126 / 81; Pulse 98; Resp 16; Pulse Ox 98% ; tl3 22:06 BP 116 / 69; Pulse 84; Resp 16; Pulse Ox 99% ; tl3 23:03 BP 116 / 89; Pulse 82; Resp 18; Pulse Ox 99% ; tl3 20:33 Body Mass Index 29.99 (97.52 kg, 180.34 cm) lk1 ED Course: 20:17 Patient arrived in ED. ds1 20:33 Triage completed. lk1 20:36 Arm band placed on right wrist. lk1 20:42 Emily Shi, YE is Primary Nurse. tl3 20:43 Danitza Healy NP is PHCP. pm1 20:43 Jerry Panda MD is Attending Physician. pm1 20:48 Patient has correct armband on for positive identification. Bed in low position. Call tl3 light in reach. Side rails up X 1. Pulse ox on. NIBP on. 20:48 No provider procedures requiring assistance completed. Patient did not have IV access tl3 during this emergency room visit. Administered Medications: 22:05 Drug: SOLU-Medrol 125 mg Route: IM; Site: right gluteus; tl3 23:35 Follow up: Response: No adverse reaction tl3 22:05 Drug: TORadol 60 mg Route: IM; Site: left gluteus; tl3 23:35 Follow up: Response: No adverse reaction; Pain is decreased tl3 22:05 Drug: [place] 10 mg-325 mg 1 tabs Route: PO; tl3 23:34 Follow up: Response: No adverse reaction; Pain is decreased tl3 Outcome: 23:12 Discharge ordered by . pm1 23:34 Patient left the ED. tl3 23:35 Discharged to home ambulatory. tl3 23:35 Condition: good 23:35 Discharge instructions given to patient, Instructed on discharge instructions, follow up and referral plans. medication usage, Demonstrated understanding of instructions, follow-up care, medications. Signatures: Syl Corral ds1 Milvia Kennedy, RN RN lk1 Danitza Healy, [employer] EN[employer]GY CONSERVATION DIRECTOR pm1 Emily Shi, YE RN tl3
== END 2018-02-22 23:34 | disposition home or self-care (01) ==
LOC: ER 20:13
DX: M10.9 Gout, unspecified (principal); F17.210 Nicotine dependence, cigarettes, uncomplicated; Z88.6 Allergy status to analgesic agent
CPT/HCPCS: 96372; 99283; J2930